=== PATIENT | female | born 1980 | race Caucasian/White ===

== ENCOUNTER 2024-05-05 18:57 | Emergency (ER) | payer MEDICAID ==
[2024-05-05 20:07] VITALS: BP 165/97; O2SAT 98
[2024-05-05] MEDS: AMOX/CLAV 875 MG/125 MG TABLET PO STA (21:58)
[2024-05-05] MEDS ORDERED: TETANUS/DIPHTHERIA/PERTUSSIS 0.5 ML SYRINGE IM ONE (22:00)
[2024-05-05] MEDS: TETANUS/DIPHTHERIA/PERTUSSIS 0.5 ML SYRINGE IM ONE (22:00)
--- NOTE | 2024-05-06 12:59 | ED Physician Documentation ---
History of Present Illness - Stated complaint Stated Complaint: DOG BITE - Chief complaint Chief Complaint: Trauma Ext - History obtained from History obtained from: Patient - History of Present Illness Timing: Prior to arrival Pain level max: 10 Pain level now: 10 - Treatment prior to arrival Treatment prior to arrival: Patient thoroughly washed and cleaned wound prior to arrival wound wrapped in gauze and ice prior to arrival - Additonal information Additional information: Patient is a 43-year-old female from [place] visiting family here and was trying to prove take some children from a dog when it bit her on the right forearm on the palmar side. Patient sustained puncture wound she cleaned thoroughly at home wrapped and came straight to the emergency department. Patient is not up-to-date on her tetanus last 1 was in 2011. She denies any numbness or tingling her extremities has good range of motion in all of her digits. She notes she is right-handed. She knows the dog has been vaccinated and is up-to-date on his rabies vaccination. PD PAST MEDICAL HISTORY - Past Medical History Past Medical History: Yes Respiratory: Other GI: GERD Other Past Medical History: Lung CA, last chemotherapy was 07/21/2022. Resp Pappiloma - Past Surgical History Past Surgical History: Yes General: Other HEENT: Other - Present Medications Home Medications: Ambulatory Orders Medication Instructions Recorded Confirmed Amox/Clav 875/125 [Augmentin] 1 each PO Q12H #20 tablet 05/05/24 Omeprazole Magnesium [Prilosec] 20 mg PO DAILY 05/05/24 05/05/24 - Allergies Allergies/Adverse Reactions: Allergies Allergy/AdvReac Type Severity Reaction Status Date / Time No Known Drug Allergies Allergy Verified 05/05/24 20:04 - Social History Does the pt smoke?: No Smoking Status: Never smoker Does the pt have substance abuse?: No - Immunizations Immunizations are current?: Yes - POLST Patient has POLST: No PD ED PE NORMAL - Vitals Vital signs reviewed: Yes - General General: Alert and oriented X 3 - HEENT HEENT: Atraumatic, PERRL - Neck Neck: Supple, no meningeal sign - Cardiac Cardiac: RRR, No gallop, No rub - Respiratory Respiratory: No respiratory distress - Derm Derm: Normal color (Patient sustained a puncture wound to right palmar forearm. No active bleeding on arrival no significant contamination full range of motion intact in digits 1 through 5 at DIP and PIP joints distal extremity sensation intact and finger opposition intact as well full range of motion on flexion exten) Results - Vitals Vitals: Vital Signs - 24 hr 05/05/24 19:55 Temperature 36.9 C Heart Rate 85 Respiratory 18 Rate Blood Pressure 165/97 H O2 Saturation 98 Oxygen O2 Source Room air PD Medical Decision Making - ED course Complexity details: reviewed old records ED course: Patient is a 43-year-old female presenting to the emergency department after being bit by dog few hours prior to arrival patient sustained puncture wound to right forearm she denies any numbness tingling significant pain to right forearm but no radiation of pain. Patient denies any feelings of foreign bodies in place. She thoroughly cleaned wound prior to arrival. Last tetanus was in 2011. Here in emergency department patient was given first dose of antibiotic and tetanus shot was updated wound was cleaned thoroughly here in the emergency department in she is neurovascularly intact on physical exam distally on the rig ht upper extremity. Instructed patient to keep wound clean and dry change dressing in 12 hours. She will follow-up with her PCP in [place]. She would take antibiotics for Augmentin to prevent any infection. Patient's dog's rabies vaccine status was up-to-date she did not want police involved. Departure - Departure Disposition: 01 Home, Self Care Clinical Impression: Puncture wound, Animal bite Condition: Good Instructions: ED Animal Bite Ch Prescriptions: Amox/Clav 875/125 [Augmentin] 1 each PO Q12H #20 tablet Comments: Watch for any numbness tingling swelling discharge worsening redness fevers chills streaking or any other new or worsening symptoms. Follow-up with your PCP in the outpatient setting to ensure resolution of symptoms. Forms: PCP List Discharge Date/Time: 05/05/24 22:06
== END 2024-05-05 22:06 | disposition home or self-care (01) ==
LOC: ED 18:57
DX: S51.831A Puncture wound without foreign body of right forearm, initial encounter (principal); W54.0XXA Bitten by dog, initial encounter; Z23 Encounter for immunization; Z85.118 Personal history of other malignant neoplasm of bronchus and lung
CPT/HCPCS: 90471; 90715; 99283; A9270